=== PATIENT | female | born 1990 | race Caucasian/White ===

== ENCOUNTER 2018-12-21 07:45 | Emergency (ER) | payer OTHER ==
[~2018-12-21] VITALS: Ht 147.3 cm; Wt 73.6 kg
[2018-12-21 07:47] VITALS: BP 120/74
--- NOTE | 2018-12-21 07:50 | NUR ---
pt bib self c/o throat pain, right ear pain, moist cough, bodyaches x 4 days. PT DENIES N/V/D; SKIN IS INTACT, PINK/WARM/DRY; AAOX4, PERRL, WITH EVEN AND STEADY GAIT; LUNGS CLEAR BL, BREATHING UNLABORED; HR EVEN AND REGULAR, BL PERIPHERAL PULSES PRESENT; BS ACTIVE X4, NO TENDERNESS TO PALPATION. PT DENIES ANY FEVER, CP, SOB, OR COUGH AT THIS TIME; PT STATES 4/10 PAIN AT THIS TIME; VSS; PATIENT POSITIONED FOR COMFORT; HOB ELEVATED; BEDRAILS UP X2; BED DOWN.
--- NOTE | 2018-12-21 07:51 | NUR ---
Patient ambulated to bed 8. RN evaluating patient at bedside.
[2018-12-21 08:14] VITALS: BP 119/72
--- NOTE | 2018-12-21 08:15 | NUR ---
Patient discharged with v/s stable. Written and verbal after care instructions given and explained. Patient alert, oriented and verbalized understanding of instructions. Ambulatory with steady gait. All questions addressed prior to discharge. ID band removed. Patient advised to follow up with PMD. Rx of promethazine, claritin-d given. Patient educated on indication of medication including possible reaction and side effects. Opportunity to ask questions provided and answered.
== END 2018-12-21 08:15 | disposition home or self-care (01) ==
LOC: MED 07:45
DX: B34.9 Viral infection, unspecified (principal); R01.1 Cardiac murmur, unspecified; H92.01 Otalgia, right ear; J02.9 Acute pharyngitis, unspecified; R51 Headache
CPT/HCPCS: 81002; 81025; 99283

== ENCOUNTER 2021-07-18 20:00 | Emergency (ER) | payer OTHER ==
[~2021-07-18] VITALS: Ht 152.4 cm; Wt 74.8 kg
[2021-07-18 20:00] VITALS: BP 164/91
--- NOTE | 2021-07-18 20:38 | NUR ---
30 Y/O FEMALE BIB FAMILY, C/O HEADACHE 10/10 SINCE 5 DAYS. PATIENT PRESENTS TO ED WITH INTERMITTENT BLURRED VISION AND N/V. PT STATES SHE WENT TO AND WAS REFFERED TO COME TO THE ER. SKIN IS PINK/WARM/DRY; AAOX4 WITH EVEN AND STEADY GAIT; LUNGS CLEAR BL; HR EVEN AND REGULAR; PT DENIES ANY FEVER, CP, SOB, OR COUGH AT THIS TIME; PATIENT STATES PAIN OF 10/10 AT THIS TIME; VSS; PATIENT POSITIONED FOR COMFORT; HOB ELEVATED; BEDRAILS UP X1; BED DOWN. ER MD MADE AWARE OF PT STATUS. LATVIAN SPEAKER. DAUGHTER AT BEDSIDE. PT HAS NO PREVIOUS HX OF HTN. MEDHX: HYPOTHYROID, FIBROMYALGIA.
--- NOTE | 2021-07-18 21:35 | NUR ---
SOUS CHEF AT BEDSIDE
[2021-07-18 21:49] LABS: BASOPHILS % (AUTO) 0.3 % (0.0-2.0); EOSINOPHILS # (AUTO) 0.1 K/uL (0-0.4); EOSINOPHILS % (AUTO) 1.4 % (0.0-4.0); HEMATOCRIT 33.4 % (36-48); HEMOGLOBIN 10.3 g/dL (12.0-16.0); LYMPHOCYTES # (AUTO) 2.3 K/uL (2.5-16.5); LYMPHOCYTES % (AUTO) 33.7 % (20.5-51.1); MEAN CORPUSCULAR HEMOGLOBIN 22 pg (27-31); MEAN CORPUSCULAR HGB CONC 31 g/dL (33-37); MEAN CORPUSCULAR VOLUME 69.7 fL (80-94); MONOCYTES # (AUTO) 0.5 K/uL (0.8-1.0); MONOCYTES % (AUTO) 7.3 % (1.7-9.3); NEUTROPHILS % (AUTO) 57.3 % (42.2-75.2); PLATELET COUNT (AUTO) 385 K/uL (140-450); RED BLOOD CELL COUNT(AUTO) 4.79 MIL/uL (4.20-5.40); RED CELL DISTRIBUTION WIDTH 15.8 % (11.6-13.7)
--- NOTE | 2021-07-18 22:04 | NUR ---
Dr. Alonso examining patient.
[2021-07-18] MEDS ORDERED: KETOROLAC 30 MG/ML VIAL IVP ONE (22:05)
[2021-07-18] MEDS ORDERED: ACETAMINOPHEN 325 MG TAB PO ONE (22:05)
[2021-07-18] MEDS ORDERED: NACL 0.9% 500 ML IV ONE (22:05)
[2021-07-18] MEDS ORDERED: PROCHLORPERAZINE 10 MG/2 ML VIAL IVP ONE (22:05)
[2021-07-18] MEDS ORDERED: diphenhydrAMINE 50 MG/ML VIAL IVP ONE (22:05)
[2021-07-18 22:13] LABS: ALBUMIN 3.7 g/dL (3.4-5.0); ANION GAP 12.7 (8-16); ASPARTATE AMINOTRANSFERASE 18 U/L (15-37); CHLORIDE 104 mmol/L (98-107); CREATININE 0.5 mg/dL (0.6-1.3); GFR ARICAN-AMERICAN 184 mL/min (>90); GLUCOSE 88 mg/dL (74-106); POTASSIUM 3.7 mmol/L (3.5-5.1); SODIUM SERUM 139 mmol/L (136-145); TOTAL BILIRUBIN 0.4 mg/dL (0.0-1.0); UREA NITROGEN, BLOOD 10 mg/dL (7-18)
[2021-07-18] MEDS ORDERED: IMI50 PO (23:15)
[2021-07-18 23:35] VITALS: BP 160/84
--- NOTE | 2021-07-18 23:36 | NUR ---
Patient discharged with v/s stable. Written and verbal after care instructions given and explained. Patient alert, oriented and verbalized understanding of instructions. Ambulatory with steady gait. All questions addressed prior to discharge. ID band removed. Patient advised to follow up with PMD. Rx of SUMATRIPTAN given. Patient educated on indication of medication including possible reaction and side effects. Opportunity to ask questions provided and answered. VSS, A/OX4, AMBULATORY, UNLABORED BREATHING, AND CALM DEMEANOR.
== END 2021-07-18 23:36 | disposition home or self-care (01) ==
LOC: MED 20:00
DX: G43.009 Migraine without aura, not intractable, without status migrainosus (principal); E03.9 Hypothyroidism, unspecified; Z79.899 Other long term (current) drug therapy
CPT/HCPCS: 36415; 70450; 71045; 80053; 81002; 81025; 84484; 85025; 93005; 96361; 96374; 96375; 99285; J0780; J1200; J1885; J7030